=== PATIENT | male | born 1950 | race Caucasian/White ===

== ENCOUNTER 2017-01-23 21:43 | Emergency (ER) | payer MEDICARE, BC ==
--- NOTE | 2017-01-23 22:01 | EDM.PDOC ---
ED HISTORY OF PRESENT ILLNESS - General Chief Complaint: Cardiovascular Problem Stated Complaint: blood pressure, headache Time Seen by Provider: 01/23/17 21:44 Source of Information: Reports: Patient, Family, RN, RN notes reviewed History Limitations: Reports: No limitations - History of Present Illness INITIAL COMMENTS - FREE TEXT/NARRATIVE: Patient presents to the ED at [facility] requesting to have his blood pressure checked. Patient states he has been out of his BP pills for the past 3 days. Patient states he has been waiting for them to arrival in the mail. Patient states he started having a slight headache yesterday and has continued through today. No chest pain. No SOB. No focal neurological deficits. No DOBBINS. No cough. No edema. Symptom Onset Date: 01/20/17 - Related Data Home Meds: Home Meds Adalimumab [Humira Pen Crohn-Uc-Hs Starter] 40 mg IM ASDIRECTED 01/23/17 [ History] ED ROS GENERAL - Review of Systems Review Of Systems: See Below Constitutional: Denies: fever, chills, weakness Respiratory: Denies: Shortness of Breath, Cough Cardiovascular: Reports: Blood pressure problem. Denies: Chest pain, Palpitations GI/Abdominal: Denies: Abdominal pain, Nausea, Vomiting Skin: Reports: no symptoms Neurological: Reports: Headache. Denies: Dizziness, Numbness, Paresthesia, Tingling ED EXAM, GENERAL - Physical Exam Exam: See Below Exam Limited By: No limitations General Appearance: alert, no apparent distress Eye Exam: bilateral eye: EOMI, normal inspection, PERRL Respiratory/Chest: no respiratory distress, lungs clear, normal breath sounds Cardiovascular: normal peripheral pulses, regular rate, rhythm, no edema Peripheral Pulses: 2+: radial (L), radial (R) GI/Abdominal: normal bowel sounds, soft, non tender Neurological: alert, oriented, normal cognition Skin Exam: Warm, Dry, Intact, Normal color, No rash Course - Orders/Labs/Meds Orders: Active Orders 24 hr Category Date Time Status Telmisartan [Micardis] Med 01/23/17 22:05 Once 40 mg PO ONETIME ONE Meds: Medications Discontinued Medications Generic Name Dose Route Start Last Admin Trade Name Freq PRN Reason Stop Dose Admin Telmisartan 40 mg 01/23/17 22:05 Micardis PO 01/23/17 22:06 ONETIME ONE Departure - Departure Time of Disposition: 21:58 Disposition: Home, Self-Care 01 Condition: good Clinical Impression: Elevated blood pressure, situational Instructions: Hypertension Forms: ED Department Discharge Additional Instructions: 1. Stay well hydrated and rest 2. Continue your home medications the same 3. See your primary as symptoms warrant 4. We will give you a one time dose of your Blood Pressure pill today - Problem List Review Problem List Initiated/Reviewed/Updated: Yes - My Orders Last 24 Hours: My Active Orders 01/23/17 22:05 Telmisartan [Micardis] 40 mg PO ONETIME ONE - Assessment/Plan Last 24 Hours: My Active Orders 01/23/17 22:05 Telmisartan [Micardis] 40 mg PO ONETIME ONE
[2017-01-23 22:08] VITALS: BP 145/94
== END 2017-01-23 22:12 | disposition home or self-care (01) ==
LOC: VM.ED 21:43
DX: R03.0 Elevated blood-pressure reading, without diagnosis of hypertension (principal)
CPT/HCPCS: 99283; A9270

== ENCOUNTER 2017-03-14 08:26 | Day surgery (SDC) | payer MEDICARE, BC ==
[~2017-03-14 08:26] MED LIST: Lactated Ringers 1,000 ML IV SCH
[2017-03-14] MEDS ORDERED: Propofol 200 MG/20 ML SDV ONE ×2 (11:27→11:35)
[2017-03-14] MEDS ORDERED: fentaNYL 100 MCG/2 ML SDV ONE (11:27)
[2017-03-14 12:30] VITALS: BP 118/77
--- NOTE | 2017-03-15 09:12 | OR ---
PREOPERATIVE DIAGNOSIS: Screening colonoscopy. POSTOPERATIVE DIAGNOSIS: Screening colonoscopy. PROCEDURE PERFORMED: Colonoscopy with polypectomy at 60 cm. INDICATION: The patient is a 66-year-old male, whose last colonoscopy was 10 years ago and was normal, presents for a repeat colonoscopy at this time. NARRATIVE: This was done in the endoscopy suite. Sedation was given per Anesthesia. He was placed in the left lateral position. First, a rectal exam was done and was normal. Scope was introduced into the rectum and slowly advanced through the rectum, sigmoid, descending, transverse, and ascending colon until the cecum was reached. Upon reaching the cecum, the scope was slowly withdrawn looking all mucosal surfaces on the way out. At 60 cm, a large polyp was located with a nice stalk on it. I put the cautery loop grasper around it and cauterized across the base and then removed it. The remainder of the exam was normal with the exception of some scattered diverticula. FINAL DIAGNOSES: 1. Large polyp at 60 cm. 2. Scattered sigmoid diverticulosis. BKD: 03/14/2017 11:59:20 MODL: 03/14/2017 19:13:40 /[id number]
== END 2017-03-14 13:05 | disposition home or self-care (01) ==
LOC: VM.SDS 08:26
PROVIDERS: ATTEND Surgery
DX: Z12.11 Encounter for screening for malignant neoplasm of colon (principal); K63.5 Polyp of colon; K57.30 Diverticulosis of large intestine without perforation or abscess without bleeding; I10 Essential (primary) hypertension; Z98.890 Other specified postprocedural states; Z87.891 Personal history of nicotine dependence; Z79.82 Long term (current) use of aspirin; Z79.899 Other long term (current) drug therapy
CPT/HCPCS: 00810; 45380; J2704; J3010; J7120; 88305

== ENCOUNTER 2018-12-04 19:37 | Emergency (ER) | payer OTHER, MEDICARE, BC ==
[2018-12-04] MEDS: Sodium Chloride 0.9% 1,000 ML IV SCH ×2 (19:45→20:50)
[2018-12-04] MEDS ORDERED: Sodium Chloride 0.9% 10 ML Syringe FLUSH PRN (19:46)
[2018-12-04 20:29] LABS: CHLORIDE,CL 101 mmol/L (98-107); SODIUM,NA 136 mmol/L (136-145)
[2018-12-04 20:30] LABS: ANION GAP 18.1 mmol/L (10-20)
--- NOTE | 2018-12-04 21:01 | EDM.PDOC ---
ED HPI GENERAL MEDICAL PROBLEM - General Chief Complaint: Respiratory Problem Stated Complaint: SHORT OF BREATH Time Seen by Provider: 12/04/18 19:45 Source of Information: Reports: Patient, Family History Limitations: Reports: No Limitations - History of Present Illness INITIAL COMMENTS - FREE TEXT/NARRATIVE: Reports of cough, fever, chills since . He comes in this evening because during a coughing spell he nearly passed out. He denies headache, chest pain, abdominal pain, blood in urine or stool. He also denies fall or striking his head. Denies recent illness contact. He does appear quite pale on initial presentation Onset: Gradual Onset Date: 11/30/18 Duration: Intermittent Location: Reports: Chest Associated Symptoms: Reports: Cough, Syncope (near) - Related Data Allergies Allergy/AdvReac Type Severity Reaction Status Date / Time No Known Allergies Allergy Verified 12/04/18 21:26 Home Meds: Home Meds Adalimumab [Humira Pen Crohn-Uc-Hs Starter] 40 mg IM ASDIRECTED 01/23/17 [ History] Aspirin 81 mg PO DAILY 01/23/17 [History] Omeprazole Magnesium [Prilosec Otc] 20 mg PO DAILY 01/23/17 [History] Losartan Potassium [Cozaar] 1 tab PO DAILY 03/10/17 [History] Multivitamin with Minerals [Multiple Vitamin] 1 tab PO DAILY 03/10/17 [History] Tadalafil [Cialis] 20 mg PO DAILY PRN 03/10/17 [History] Tamsulosin HCl [Flomax] 1 tab PO DAILY 03/10/17 [History] Past Medical History HEENT History: Reports: Cataract, Hard of Hearing Cardiovascular History: Reports: Hypertension Respiratory History: Reports: SOB Gastrointestinal History: Reports: GERD Genitourinary History: Reports: Prostate Disorder Musculoskeletal History: Reports: Arthritis, Other (See Below) Other Musculoskeletal History: Ankylosing spondylitis Neurological History: Reports: None Psychiatric History: Reports: None Endocrine/Metabolic History: Reports: None Hematologic History: Reports: None Immunologic History: Reports: None Oncologic (Cancer) History: Reports: None Dermatologic History: Reports: None - Past Surgical History Head Surgeries/Procedures: Reports: None HEENT Surgical History: Reports: Cataract Surgery, Naso-Sinus Surgery, Tonsillectomy Cardiovascular Surgical History: Reports: None Respiratory Surgical History: Reports: None GI Surgical History: Reports: Colonoscopy Male Surgical History: Reports: None Endocrine Surgical History: Reports: None Neurological Surgical History: Reports: None Musculoskeletal Surgical History: Reports: None Oncologic Surgical History: Reports: None Dermatological Surgical History: Reports: Skin Biopsy ED ROS GENERAL - Review of Systems Review Of Systems: See Below Constitutional: Reports: Fever, Chills HEENT: Reports: No Symptoms Respiratory: Reports: Shortness of Breath, Cough Cardiovascular: Reports: No Symptoms Endocrine: Reports: No Symptoms GI/Abdominal: Reports: No Symptoms : Reports: No Symptoms Musculoskeletal: Reports: No Symptoms Skin: Reports: No Symptoms Neurological: Reports: Syncope Psychiatric: Reports: No Symptoms Hematologic/Lymphatic: Reports: No Symptoms Immunologic: Reports: No Symptoms ED EXAM, GENERAL - Physical Exam Exam: See Below Exam Limited By: No Limitations General Appearance: Alert, WD/WN, Mild Distress Eye Exam: Bilateral Eye: EOMI, Normal Inspection, PERRL Ears: Normal TMs Nose: Normal Inspection, Normal Mucosa, No Blood Throat/Mouth: Normal Inspection, Normal Lips, Normal Teeth, Normal Gums, Normal Oropharynx, Normal Voice, No Airway Compromise Head: Atraumatic, Normocephalic Neck: Normal Inspection, Supple, Non-Tender, Full Range of Motion Respiratory/Chest: No Respiratory Distress, No Accessory Muscle Use, Chest Non- Tender, Decreased Breath Sounds, Rales Cardiovascular: Normal Peripheral Pulses, Regular Rate, Rhythm, No Edema, No Gallop, No JVD, No Murmur, No Rub Peripheral Pulses: 2+: Posterior Tibial (L), Posterior Tibial (R), Dorsalis Pedis (L), Dorsalis Pedis (R) GI/Abdominal: Normal Bowel Sounds, Soft, Non-Tender, No Organomegaly, No Distention, No Abnormal Bruit, No Mass Back Exam: Normal Inspection, Full Range of Motion, NT Extremities: Normal Inspection, Normal Range of Motion, Non-Tender, Normal Capillary Refill, No Pedal Edema Neurological: Alert, Oriented, CN II-XII Intact, Normal Cognition, Normal Gait, Normal Reflexes, No Motor/Sensory Deficits Psychiatric: Normal Affect, Normal Mood Skin Exam: Warm, Dry, Intact, Normal Color, No Rash Lymphatic: No Adenopathy EKG INTERPRETATION EKG Date: 12/04/18 Time: 19:54 Rhythm: NSR Rate (Beats/Min): 68 [place]: Normal P-Wave: Present QRS: RBBB ST-T: Normal QT: Normal Comparison: NA - No Prior EKG Course - Orders/Labs/Meds Orders: Active Orders 24 hr Category Date Time Status EKG Documentation Completion [RC] STAT Care 12/04/18 19:46 Ordered C-REACTIVE PROTEIN [CHEM] Stat Lab 12/04/18 19:46 Ordered COMPREHENSIVE METABOLIC PN,CMP [CHEM] Stat Lab 12/04/18 19:46 Ordered CREATINE KINASE,CK [CHEM] Stat Lab 12/04/18 19:46 Ordered D Dimer [D-DIMER QUANTITATIVE] [COAG] Stat Lab 12/04/18 19:47 Ordered INFLUENZA A+B AG SCREEN [RM] Stat Lab 12/04/18 19:46 Ordered LACTIC ACID [CHEM] Stat Lab 12/04/18 19:46 Ordered PRO B-TYPE NATRIUR PEPT,BNPPRO [CHEM] Stat Lab 12/04/18 19:47 Ordered TROPONIN I [CHEM] Stat Lab 12/04/18 19:46 Ordered Sodium Chloride 0.9% [Normal Saline] 1,000 ml Med 12/04/18 20:00 Ordered IV ASDIRECTED Sodium Chloride 0.9% [Saline Flush] Med 12/04/18 19:46 Ordered 10 ml FLUSH ASDIRECTED PRN Saline Lock Insert [OM.PC] Routine Oth 12/04/18 19:46 Ordered Medication Orders Sodium Chloride (Normal Saline) 1,000 mls @ 999 mls/hr IV ASDIRECTED SUJATHA Sodium Chloride (Saline Flush) 10 ml FLUSH ASDIRECTED PRN PRN Reason: Keep Vein Open Labs: Laboratory Tests 12/04/18 Range/Units 19:45 WBC 8.6 (4.0-10.0) x10^3/uL RBC 4.88 (4.5-6.0) x10^6/uL Hgb 14.9 (14.0-18.0) g/dL Hct 43.8 (40.0-52.0) % MCV 89.8 (78.0-93.0) fL MCH 30.5 (26.0-32.0) pg MCHC 34.0 (32.0-36.0) g/dL RDW Coeff of Darren 12.9 (10.0-15.0) % Plt Count 248 (130-400) x10^3/uL Neut % (Auto) 51.7 (50.0-80.0) % Lymph % (Auto) 32.2 (25.0-50.0) % [place] % (Auto) 11.5 H (2.0-11.0) % Eos % (Auto) 3.3 (0.0-4.0) % Baso % (Auto) 1.3 H (0.2-1.2) % Meds: Medications Generic Name Dose Route Start Last Admin Trade Name Freq PRN Reason Stop Dose Admin Sodium Chloride 1,000 mls @ 999 mls/hr 12/04/18 20:00 Normal Saline IV ASDIRECTED SUJATHA Sodium Chloride 10 ml 12/04/18 19:46 Saline Flush FLUSH ASDIRECTED PRN Keep Vein Open - Radiology Interpretation Free Text/Narrative:: CT shows right upper lobe pneumonia, no aneurism. Departure - Departure Time of Disposition: 21:34 Disposition: Home, Self-Care 01 Condition: Good Clinical Impression: Right upper lobe pneumonia Instructions: Community-Acquired Pneumonia, Adult, [id number], Doxycycline tablets or capsules, Probiotics Referrals: Aliyah Perdomo MD [Primary Care Provider] - Forms: ED Department Discharge Additional Instructions: Plan 1. Stay well hydrated 2. Take the full course of antibiotic unless you develop signs of allergy including rash, throat or facial swelling, or difficulty breathing. Doxycycline 100 mg twice a day for 7 days. 3. Follow up with your primary doctor in 7-10 days for repeat x-ray to be sure pneumonia has resolved. 4. If symptoms worsen go to your primary doctor as well. 5. Please eat 1-2 servings of yogurt to prevent a bacterial infection of the gut due to the use of antibiotics 6. Please call if you have any additional questions or concerns - Problem List & Annotations (1) Right upper lobe pneumonia SNOMED Code(s): 658750480 Code(s): J18.1 - LOBAR PNEUMONIA, UNSPECIFIED ORGANISM Status: Acute Priority: Medium Current Visit: Yes Qualifiers: Pneumonia type: due to unspecified organism Qualified Code(s): J18.1 - Lobar pneumonia, unspecified organism - Problem List Review Problem List Initiated/Reviewed/Updated: Yes - My Orders Last 24 Hours: My Active Orders 12/04/18 19:46 EKG Documentation Completion [RC] STAT C-REACTIVE PROTEIN [CHEM] Stat COMPREHENSIVE METABOLIC PN,CMP [CHEM] Stat CREATINE KINASE,CK [CHEM] Stat INFLUENZA A+B AG SCREEN [RM] Stat LACTIC ACID [CHEM] Stat TROPONIN I [CHEM] Stat Sodium Chloride 0.9% [Saline Flush] 10 ml FLUSH ASDIRECTED PRN Saline Lock Insert [OM.PC] Routine 12/04/18 19:47 D Dimer [D-DIMER QUANTITATIVE] [COAG] Stat PRO B-TYPE NATRIUR PEPT,BNPPRO [CHEM] Stat 12/04/18 20:00 Sodium Chloride 0.9% [Normal Saline] 1,000 ml IV ASDIRECTED - Assessment/Plan Last 24 Hours: My Active Orders 12/04/18 19:46 EKG Documentation Completion [RC] STAT C-REACTIVE PROTEIN [CHEM] Stat COMPREHENSIVE METABOLIC PN,CMP [CHEM] Stat CREATINE KINASE,CK [CHEM] Stat INFLUENZA A+B AG SCREEN [RM] Stat LACTIC ACID [CHEM] Stat TROPONIN I [CHEM] Stat Sodium Chloride 0.9% [Saline Flush] 10 ml FLUSH ASDIRECTED PRN Saline Lock Insert [OM.PC] Routine 12/04/18 19:47 D Dimer [D-DIMER QUANTITATIVE] [COAG] Stat PRO B-TYPE NATRIUR PEPT,BNPPRO [CHEM] Stat 12/04/18 20:00 Sodium Chloride 0.9% [Normal Saline] 1,000 ml IV ASDIRECTED Assessment:: right upper lobe pneumonia Plan: Plan 1. Stay well hydrated 2. Take the full course of antibiotic unless you develop signs of allergy including rash, throat or facial swelling, or difficulty breathing. Doxycycline 100 mg twice a day for 7 days. 3. Follow up with your primary doctor in 7-10 days for repeat x-ray to be sure pneumonia has resolved. 4. If symptoms worsen go to your primary doctor as well. 5. Please eat 1-2 servings of yogurt to prevent a bacterial infection of the gut due to the use of antibiotics 6. Please call if you have any additional questions or concerns
[2018-12-04] MEDS: cefTRIAXone 2 GM Vial IVPUSH ONE (21:35)
[2018-12-04] MEDS: Codeine/Promethazine 10-6.25 MG/5 ML Syrup 5 ML UD Cup PO ONE (21:36)
[2018-12-04] MEDS: Iopamidol 612 MG/ML 100 ML Bottle IVPUSH ONE (21:38)
[2018-12-05 00:33] VITALS: BP 140/83
--- NOTE | 2018-12-05 08:49 | CT ---
[id number] CT/CT Chest W IV Exam: CT Chest W IV Clinical Data: SHORTNESS OF BREATH. POSSIBLE THORACIC AORTIC ANEURYSM. COMPARISON: NO PREVIOUS SIMILAR EXAM IS AVAILABLE. FINDINGS: There is substernal extension of thyroid tissue. The thoracic aorta is slightly ectatic but there is no aneurysm. The thoracic aorta measures a maximum diameter of 3.5 cm. There is mild nonspecific mediastinal adenopathy. There is minimal bilateral hilar adenopathy. No obvious pulmonary emboli are seen. There is a branching right upper lobe lymphangitic interstitial pattern which is not normal. There is question of an early right hilar mass. There is a minimal infiltrate at the right lung base posterior medially. There is a fatty appearance of the liver. There is no adrenal mass. An 8 mm nonspecific hypodensity is seen in segment IV A of the left lobe of the liver. IMPRESSION: QUESTION OF EARLY RIGHT HILAR MASS. BRANCHING LYMPHANGITIC RIGHT UPPER LOBE INTERSTITIAL PATTERN. CONSIDER BRONCHOSCOPY. NO THORACIC AORTIC ANEURYSM OR DISSECTION. Rich Quigley MD 12/05/18 0848 Thank you for allowing us to participate in the care of your patient.
== END 2018-12-04 21:50 | disposition home or self-care (01) ==
LOC: VM.ED 19:37
DX: J18.1 Lobar pneumonia, unspecified organism (principal); I10 Essential (primary) hypertension; Z79.82 Long term (current) use of aspirin; Z79.899 Other long term (current) drug therapy
CPT/HCPCS: 71260; 80053; 82550; 83605; 83880; 84484; 85025; 85379; 86140; 87804; 87804-59; 93005; 93010; 96361; 96374; 99284-25; 99284-GF; A9270-GY; J0696; J7030; Q9967

== ENCOUNTER 2020-09-16 05:11 | Emergency (ER) | payer OTHER, MEDICARE, BC ==
--- NOTE | 2020-09-16 05:49 | EDM.PDOC ---
<Fernando Granados W - Last Filed: 09/16/20 06:20> ED HPI GENERAL MEDICAL PROBLEM - General Chief Complaint: Abdominal Pain Stated Complaint: Abdominal pain, constipation Time Seen by Provider: 09/16/20 05:15 Source of Information: Reports: Patient History Limitations: Reports: No Limitations - History of Present Illness INITIAL COMMENTS - FREE TEXT/NARRATIVE: Pt. presents to ER with complaints of inability to urinate, constipation, and lower abdominal pain. Pt. has a history of ALS and does not ambulate freely on his own. He states that he has not had a BM since last Tuesday, and states that he was last able to urinate yesterday afternoon. Denies any fever or chills. No chest pain, shortness of breath. Denies any blood in stools. He states that he goes to the [facility] in [place] for his primary care. Pt. states that he has never required catheterization for urinary retention in the past. He does have a history of BPH and is on flomax. Pt. states that he has been passing gas. He states as though the stool is obstructing home at his distal colon/rectum. He states that he has been taking stool softeners but they are not helping. Onset Date: 09/15/20 Location: Reports: Abdomen Quality: Reports: Ache Severity: Severe - Related Data Allergies Allergy/AdvReac Type Severity Reaction Status Date / Time No Known Allergies Allergy Verified 09/16/20 05:53 Home Meds: Home Meds Adalimumab [Humira Pen Crohn-Uc-Hs Starter] 40 mg IM ASDIRECTED 01/23/17 [History] Aspirin 81 mg PO DAILY 01/23/17 [History] Omeprazole Magnesium [Prilosec Otc] 20 mg PO DAILY 01/23/17 [History] Losartan Potassium [Cozaar] 100 mg PO DAILY 03/10/17 [History] Multivitamin with Minerals [Multiple Vitamin] 1 tab PO DAILY 03/10/17 [History] Tadalafil [Cialis] 20 mg PO DAILY PRN 03/10/17 [History] Tamsulosin HCl [Flomax] 0.4 mg PO DAILY 03/10/17 [History] Cholecalciferol (Vitamin D3) [Vitamin D3] 2,000 units PO DAILY 12/05/18 [History] atorvaSTATin [Lipitor] 20 mg PO DAILY 12/05/18 [History] Past Medical History HEENT History: Reports: Cataract, Hard of Hearing Cardiovascular History: Reports: Hypertension Respiratory History: Reports: SOB Gastrointestinal History: Reports: GERD Genitourinary History: Reports: Prostate Disorder Musculoskeletal History: Reports: Arthritis, Other (See Below) Other Musculoskeletal History: Ankylosing spondylitis Neurological History: Reports: None Psychiatric History: Reports: None Endocrine/Metabolic History: Reports: None Hematologic History: Reports: None Immunologic History: Reports: None Oncologic (Cancer) History: Reports: None Dermatologic History: Reports: None - Past Surgical History Head Surgeries/Procedures: Reports: None HEENT Surgical History: Reports: Cataract Surgery, Naso-Sinus Surgery, Tonsillectomy Cardiovascular Surgical History: Reports: None Respiratory Surgical History: Reports: None GI Surgical History: Reports: Colonoscopy Male Surgical History: Reports: None Endocrine Surgical History: Reports: None Neurological Surgical History: Reports: None Musculoskeletal Surgical History: Reports: None Oncologic Surgical History: Reports: None Dermatological Surgical History: Reports: Skin Biopsy ED ROS GENERAL - Review of Systems Review Of Systems: See Below Constitutional: Reports: No Symptoms. Denies: Fever, Chills, Malaise, Weakness HEENT: Reports: No Symptoms Respiratory: Reports: No Symptoms Cardiovascular: Reports: No Symptoms Endocrine: Reports: No Symptoms GI/Abdominal: Reports: Abdominal Pain, Constipation. Denies: Black Stool, Bloody Stool, Hematochezia, Melena, Nausea, Vomiting : Reports: Urinary Retention. Denies: Dysuria, Frequency Musculoskeletal: Reports: No Symptoms Skin: Reports: No Symptoms Neurological: Reports: No Symptoms Psychiatric: Reports: No Symptoms Hematologic/Lymphatic: Reports: No Symptoms Immunologic: Reports: No Symptoms ED EXAM, GENERAL - Physical Exam Exam: See Below Exam Limited By: No Limitations General Appearance: Alert, WD/WN, No Apparent Distress GI/Abdominal: Soft, Non-Tender, No Distention, No Mass (Male) Exam: Normal Inspection, Other (bladder scan performed, approx 1300ml noted.) Rectal (Males) Exam: Fecal Impaction Back Exam: Normal Inspection, Full Range of Motion Extremities: Normal Inspection, Normal Range of Motion, No Pedal Edema, Normal Capillary Refill Neurological: Alert, Oriented, CN II-XII Intact, Normal Cognition, Other (Unable to ambulate, history of ALS.) Psychiatric: Normal Affect, Normal Mood Skin Exam: Warm, Dry, Intact, Normal Color Lymphatic: No Adenopathy Departure - Departure Disposition: Home, Self-Care 01 Clinical Impression: Acute urinary retention, ALS (amyotrophic lateral sclerosis) Constipation Qualifiers: Constipation type: unspecified constipation type Qualified Code(s): K59.00 - Constipation, unspecified - Discharge Information Instructions: Constipation, Adult, [id number], Acute Urinary Retention, Male, [id number] Referrals: Aliyah Perdomo MD [Primary Care Provider] - Forms: ED Department Discharge Additional Instructions: Increase your fluids orally at home as much as possible the next few weeks. Miralax, 1 capful in a large glass of water every day. Increase by 1 capful every 2 days until easy smooth bowel movements. i.e. day 2-2 capfuls, day 4-3 capfuls and then slowly decrease and titrate for easy smooth bowel movements. Return to the ED if new or worsening symptoms. Recheck with PCP next week. <Han Stone - Last Filed: 09/16/20 09:49> Course - Vital Signs Last Recorded V/S: Last Vital Signs Temp 97.3 F 09/16/20 05:11 Pulse 82 09/16/20 05:11 Resp 20 09/16/20 05:11 BP 148/92 H 09/16/20 05:11 Pulse Ox 96 09/16/20 05:11 - Orders/Labs/Meds Orders: Active Orders 24 hr Category Date Time Status Bladder Scan [RC] ASDIRECTED Care 09/16/20 06:15 Active Enema [RC] ASDIRECTED Care 09/16/20 08:50 Active Insert Aragon Catheter [Insert Urinary Catheter] [OM.PC] Care 09/16/20 05:30 Ordered Q24H Urinary Catheter Assessment [RC] ASDIRECTED Care 09/16/20 05:28 Active Sodium Chloride 0.9% [Saline Flush] Med 09/16/20 06:39 Active 10 ml FLUSH ASDIRECTED PRN Peripheral IV Insertion Adult [OM.PC] Routine Oth 09/16/20 06:39 Ordered Medication Orders Sodium Chloride (Saline Flush) 10 ml FLUSH ASDIRECTED PRN PRN Reason: Keep Vein Open Labs: Laboratory Tests 09/16/20 09/16/20 09/16/20 Range/Units 05:35 06:20 06:20 WBC 14.4 H (4.0-10.0) x10^3/uL RBC 4.44 L (4.5-6.0) x10^6/uL Hgb 13.1 L D (14.0-18.0) g/dL Hct 39.1 L (40.0-52.0) % MCV 88.1 (78.0-93.0) fL MCH 29.5 (26.0-32.0) pg MCHC 33.5 (32.0-36.0) g/dL RDW Coeff of Darren 13.3 (10.0-15.0) % Plt Count 332 D (130-400) x10^3/uL Add Manual Diff Yes Neutrophils % (Manual) 63 (50-80) % Band Neutrophils % 2 (0-6) % Lymphocytes % (Manual) 25 (25-50) % Monocytes % (Manual) 7 (2-11) % Eosinophils % (Manual) 3 (0-4) % Hypersegmented Neuts Moderate H Platelet Estimate Adequate PT 9.6 (9.5-12.3) SEC INR 0.9 L (2.0-3.5) Sodium (136-145) mmol/L Potassium (3.5-5.1) mmol/L Chloride (98-107) mmol/L Carbon Dioxide (21-32) mmol/L Anion Gap (10-20) mmol/L BUN (7-18) mg/dL Creatinine (0.70-1.30) mg/dL Est Cr Clr Drug Dosing mL/min Estimated GFR (MDRD) Glucose (74-106) mg/dL Calcium (8.5-10.1) mg/dL Corrected Calcium (8.5-10.1) mg/dL Total Bilirubin (0.2-1.0) mg/dL AST (15-37) U/L ALT (16-63) U/L Alkaline Phosphatase (46-116) U/L C-Reactive Protein (<=0.9) mg/dL Total Protein (6.4-8.2) g/dL Albumin (3.4-5.0) g/dL Globulin Albumin/Globulin Ratio Urine Color Yellow (YELLOW) Urine Appearance Clear (CLEAR) Urine pH 7.0 (5.0-8.0) Ur Specific [place] 1.020 Urine Protein Negative (NEGATIVE) mg/dL Urine Glucose (UA) Negative (NEGATIVE) mg/dL Urine Ketones Negative (NEGATIVE) mg/dL Urine Occult Blood Negative (NEGATIVE) Urine Nitrite Negative (NEGATIVE) Urine Bilirubin Negative (NEGATIVE) Urine Urobilinogen 0.2 (0.2) EU/dL Ur Leukocyte Esterase Negative (NEGATIVE) 09/16/20 Range/Units 06:20 WBC (4.0-10.0) x10^3/uL RBC (4.5-6.0) x10^6/uL Hgb (14.0-18.0) g/dL Hct (40.0-52.0) % MCV (78.0-93.0) fL MCH (26.0-32.0) pg MCHC (32.0-36.0) g/dL RDW Coeff of Darren (10.0-15.0) % Plt Count (130-400) x10^3/uL Add Manual Diff Neutrophils % (Manual) (50-80) % Band Neutrophils % (0-6) % Lymphocytes % (Manual) (25-50) % Monocytes % (Manual) (2-11) % Eosinophils % (Manual) (0-4) % Hypersegmented Neuts Platelet Estimate PT (9.5-12.3) SEC INR (2.0-3.5) Sodium 134 L (136-145) mmol/L Potassium 4.0 (3.5-5.1) mmol/L Chloride 102 (98-107) mmol/L Carbon Dioxide 23 (21-32) mmol/L Anion Gap 13.0 (10-20) mmol/L BUN 14 (7-18) mg/dL Creatinine 0.6 L (0.70-1.30) mg/dL Est Cr Clr Drug Dosing 125.74 mL/min Estimated GFR (MDRD) > 60 Glucose 106 (74-106) mg/dL Calcium 8.7 (8.5-10.1) mg/dL Corrected Calcium 9.58 (8.5-10.1) mg/dL Total Bilirubin 0.5 (0.2-1.0) mg/dL AST 11 L (15-37) U/L ALT 23 (16-63) U/L Alkaline Phosphatase 35 L (46-116) U/L C-Reactive Protein 4.5 H (<=0.9) mg/dL Total Protein 7.0 (6.4-8.2) g/dL Albumin 2.9 L (3.4-5.0) g/dL Globulin 4.1 Albumin/Globulin Ratio 0.71 Urine Color (YELLOW) Urine Appearance (CLEAR) Urine pH (5.0-8.0) Ur Specific [place] Urine Protein (NEGATIVE) mg/dL Urine Glucose (UA) (NEGATIVE) mg/dL Urine Ketones (NEGATIVE) mg/dL Urine Occult Blood (NEGATIVE) Urine Nitrite (NEGATIVE) Urine Bilirubin (NEGATIVE) Urine Urobilinogen (0.2) EU/dL Ur Leukocyte Esterase (NEGATIVE) Meds: Medications Generic Name Dose Route Start Last Admin Trade Name Freq PRN Reason Stop Dose Admin Sodium Chloride 10 ml 09/16/20 06:39 Saline Flush FLUSH ASDIRECTED PRN Keep Vein Open Discontinued Medications Generic Name Dose Route Start Last Admin Trade Name Freq PRN Reason Stop Dose Admin Iopamidol 100 ml 09/16/20 07:15 09/16/20 07:45 Isovue-300 (61%) IVPUSH 09/16/20 07:16 100 ml ONETIME ONE Administration Polyethylene Glycol 34 gm 09/16/20 08:22 09/16/20 08:50 Miralax PO 09/16/20 08:23 34 gm ONETIME ONE Administration - Radiology Interpretation Free Text/Narrative:: 2 view of the abdomen x-ray per radiology shows obstipation with large amount of inspissated stool within the rectal vault CT abdomen pelvis per radiology shows no acute process no bowel obstruction. - Re-Assessments/Exams Free Text/Narrative Re-Assessment/Exam: 09/16/20 07:12 Assumed care of this patient at shift change. Waiting for the CT scan to be completed that was ordered by Fernando Du PA-C. Pt resting comfortably with no pain at this time following the aragon catheter was placed. 09/16/20 08:30 A double dose of MiraLAX was ordered for 34 g total. Fleets enema to be instilled for the obstipation. I reviewed the negative CT results for any acute process with the patient. 09/16/20 09:02 I had a long discussion with the patient about his urinary retention as well. This is most likely caused to his constipation he feels. He has not had any problems with voiding in the past. He would like the catheter removed at this time. Catheter was removed. He was able to have a rather large bowel movement while in the emergency department. We will discharge him home with his . And put on Miralax for treatment of his constipation. He was comfortable with this plan and his questions answered. Departure - Departure Time of Disposition: 09:07 Sepsis Event Note (ED) - Focused Exam Vital Signs: Vital Signs Temp Pulse Resp BP Pulse Ox 09/16/20 05:11 97.3 F 82 20 148/92 H 96 - My Orders Last 24 Hours: My Active Orders 09/16/20 08:50 Enema [RC] ASDIRECTED - Assessment/Plan Last 24 Hours: My Active Orders 09/16/20 08:50 Enema [RC] ASDIRECTED
[2020-09-16 05:53] VITALS: BP 148/92; PULSE 82
[2020-09-16] MEDS ORDERED: Sodium Chloride 0.9% 10 ML Syringe FLUSH PRN (06:39)
[2020-09-16 06:46] LABS: CHLORIDE,CL 102 mmol/L (98-107); SODIUM,NA 134 mmol/L (136-145)
[2020-09-16] MEDS ORDERED: Iopamidol 612 MG/ML 100 ML Bottle IVPUSH ONE (07:15)
--- NOTE | 2020-09-16 07:44 | CR ---
[id number] RAD/RAD Abd Flat and Upright 2V Exam: RAD Abd Flat and Upright 2V Clinical Data: ABDOMINAL PAIN COMPARISON: NO PREVIOUS SIMILAR EXAM IS AVAILABLE FINDINGS: There is a large fecal volume There is no bowel distention There is no free air There is no organomegaly or pathologic calcification IMPRESSION: OBSTIPATION Rich Quigley MD 09/16/20 0743 Thank you for allowing us to participate in the care of your patient.
--- NOTE | 2020-09-16 08:08 | CT ---
[id number] CT/CT Abdomen Pelvis W IV EXAM: CT Abdomen Pelvis W IV CLINICAL DATA: ABDOMINAL PAIN ELEVATED WHITE BLOOD CELL COUNT COMPARISON: NO PREVIOUS SIMILAR EXAM IS AVAILABLE FINDINGS: A tiny nodule is seen at the right lung base on image 4, series 2 There is a Ovalles catheter in the bladder The bladder wall is thickened The pelvis shows no mass or adenopathy The appendix is normal The liver and spleen, kidneys and adrenals, pancreas and aorta are also unremarkable The gallbladder is not distended There is no bowel obstruction IMPRESSION: NO ACUTE PROCESS. Rich Quigley MD 09/16/20 0806 Thank you for allowing us to participate in the care of your patient.
[2020-09-16] MEDS ORDERED: Polyethylene Glycol 3350 Powder 17 GM Packet PO ONE (08:22)
== END 2020-09-16 09:53 | disposition home or self-care (01) ==
LOC: VM.ED 05:11
DX: K59.00 Constipation, unspecified (principal); R33.9 Retention of urine, unspecified; G12.21 Amyotrophic lateral sclerosis; I10 Essential (primary) hypertension; K21.9 Gastro-esophageal reflux disease without esophagitis; N42.9 Disorder of prostate, unspecified; Z79.82 Long term (current) use of aspirin; Z79.899 Other long term (current) drug therapy
CPT/HCPCS: 36415; 51702; 74019; 74177; 80053; 81003; 85025; 85610; 86140; 99284; 99284-25; A9270-GY; Q9967

== ENCOUNTER 2020-10-19 11:54 | Emergency (ER) | payer OTHER, MEDICARE, BC ==
--- NOTE | 2020-10-19 12:30 | EDM.PDOC ---
ED HPI GENERAL MEDICAL PROBLEM - General Chief Complaint: Respiratory Problem Stated Complaint: shortness of breath Time Seen by Provider: 10/19/20 11:54 Source of Information: Reports: Patient, EMS, Family History Limitations: Reports: No Limitations - History of Present Illness INITIAL COMMENTS - FREE TEXT/NARRATIVE: Mendoza is a 70 year old male presents to ER with complaints of increased shortness of breath and anxiety. Was diagnosed with ALS in July. States "looking back at what was happening, feel likely has had it for 3 years". Seems to be progressing quickly despite taking IV Radicava infusions to try to stabilize the disease. Has noticed over the last 3 days, weakness seems to be much worse. Has not been able to feed himself the last 2 days as raising his arm and the weakness has become more pronounced. Admits that is very difficult to roll over in bed. Unable to walk. Family does help in his care, use an ez- stand for transfers, give him IV infusions daily. Does do a nebulizer treatment every evening to help with his phlegm and that does seem to help. This am, had his infusion before breakfast and approximately 40 minutes later, felt like he couldn't get his breath, couldn't swallow his food and got very anxious. states were unable to calm him or slow his breathing. [facility] Home health does come in weekly for nursing, PT and OT. Adjustments have been made in the home to make it more handicap accessible. On EMS arrival, oxygen sat was 99% on room air. Did start oxygen at 2 liters and patient admits that helped him to feel better. Denies shortness of breath or chest pain now. No pain in his joints. Does have a history of RA, will be resuming his Humara injections as well as is on prednisone. Onset: Today, Sudden Duration: Minutes:, Improving Location: Reports: Chest Severity: Moderate Associated Symptoms: Reports: cough w sputum, Shortness of Breath, Weakness. Denies: Confusion, Chest Pain, Diaphoresis, Fever/Chills, Headaches, Loss of Appetite, Nausea/Vomiting - Related Data Allergies Allergy/AdvReac Type Severity Reaction Status Date / Time No Known Allergies Allergy Verified 10/19/20 12:43 Home Meds: Home Meds Adalimumab [Humira Pen Crohn-Uc-Hs Starter] 40 mg IM ASDIRECTED 01/23/17 [History] Aspirin 81 mg PO DAILY 01/23/17 [History] Omeprazole Magnesium [Prilosec Otc] 20 mg PO DAILY 01/23/17 [History] Losartan Potassium [Cozaar] 100 mg PO DAILY 03/10/17 [History] Tamsulosin HCl [Flomax] 0.4 mg PO DAILY 03/10/17 [History] Cholecalciferol (Vitamin D3) [Vitamin D3] 1,000 units PO DAILY 10/19/20 [His tory] Edaravone [Radicava] 60 mg IV ASDIRECTED 10/19/20 [History] Riluzole 50 mg PO BID 10/19/20 [History] polyethylene glycoL 3350 [Miralax] 1 cap PO DAILY 10/19/20 [History] predniSONE [Prednisone] 10 mg PO DAILY 10/19/20 [History] Past Medical History HEENT History: Reports: Cataract, Hard of Hearing Cardiovascular History: Reports: Hypertension Respiratory History: Reports: SOB Gastrointestinal History: Reports: GERD Genitourinary History: Reports: Prostate Disorder Musculoskeletal History: Reports: Arthritis, Other (See Below) Other Musculoskeletal History: Ankylosing spondylitis Neurological History: Reports: None, Other (See Below) Other Neuro History: ALS Psychiatric History: Reports: None Endocrine/Metabolic History: Reports: None Hematologic History: Reports: None Immunologic History: Reports: None Oncologic (Cancer) History: Reports: None Dermatologic History: Reports: None - Past Surgical History Head Surgeries/Procedures: Reports: None HEENT Surgical History: Reports: Cataract Surgery, Naso-Sinus Surgery, Tonsillectomy Cardiovascular Surgical History: Reports: None Respiratory Surgical History: Reports: None GI Surgical History: Reports: Colonoscopy Male Surgical History: Reports: None Endocrine Surgical History: Reports: None Neurological Surgical History: Reports: None Musculoskeletal Surgical History: Reports: None Oncologic Surgical History: Reports: None Dermatological Surgical History: Reports: Skin Biopsy Social & Family History - Tobacco Use Tobacco Use Status *Q: Current Every Day Tobacco User Tobacco Use Within Last Twelve Months: Snuff/Dip ED ROS GENERAL - Review of Systems Review Of Systems: See Below Constitutional: Reports: Malaise, Weakness, Fatigue. Denies: Fever, Chills, Dec reased Appetite HEENT: Reports: Rhinitis, Sinus Problem. Denies: Ear Pain, Throat Pain Respiratory: Reports: Shortness of Breath, Cough, Sputum Cardiovascular: Reports: Lightheadedness. Denies: Chest Pain, Edema Endocrine: Reports: Fatigue GI/Abdominal: Reports: Constipation. Denies: Abdominal Pain, Diarrhea, Nausea, Vomiting : Reports: No Symptoms Musculoskeletal: Reports: Muscle Stiffness, Other (joint stiffness) Skin: Reports: No Symptoms Neurological: Reports: Weakness ED EXAM, GENERAL - Physical Exam Exam: See Below Exam Limited By: No Limitations General Appearance: Alert, WD/WN, No Apparent Distress Eye Exam: Bilateral Eye: PERRL Ears: Normal External Exam, Normal TMs Nose: Normal Inspection, Normal Mucosa, No Blood Throat/Mouth: Normal Inspection, Normal Oropharynx Neck: Normal Inspection, Supple, Non-Tender Respiratory/Chest: No Respiratory Distress, Lungs Clear, Normal Breath Sounds Cardiovascular: Regular Rate, Rhythm GI/Abdominal: Normal Bowel Sounds, Soft, Non-Tender Extremities: Limited Range of Motion, Other (weakness noted throughout) Neurological: Alert, Oriented Skin Exam: Warm, Dry Course - Vital Signs Last Recorded V/S: Last Vital Signs Temp 98 F 10/19/20 11:55 Pulse 70 10/19/20 11:55 Resp 24 H 10/19/20 11:55 BP 161/97 H 10/19/20 12:15 Pulse Ox 99 10/19/20 11:55 - Orders/Labs/Meds Labs: Laboratory Tests 10/19/20 10/19/20 10/19/20 Range/Units 12:32 12:32 12:32 WBC 11.8 H (4.0-10.0) x10^3/uL RBC 4.44 L (4.5-6.0) x10^6/uL Hgb 13.0 L (14.0-18.0) g/dL Hct 39.3 L (40.0-52.0) % MCV 88.5 (78.0-93.0) fL MCH 29.3 (26.0-32.0) pg MCHC 33.1 (32.0-36.0) g/dL RDW Coeff of Darren 13.2 (10.0-15.0) % Plt Count 380 (130-400) x10^3/uL Neut % (Auto) 62.9 (50.0-80.0) % Lymph % (Auto) 28.1 (25.0-50.0) % [place] % (Auto) 7.2 (2.0-11.0) % Eos % (Auto) 1.2 (0.0-4.0) % Baso % (Auto) 0.6 (0.2-1.2) % D-Dimer, Quantitative 1.67 H (<=0.58) mg/LFEU Sodium 138 (136-145) mmol/L Potassium 3.7 (3.5-5.1) mmol/L Chloride 101 (98-107) mmol/L Carbon Dioxide 27 (21-32) mmol/L Anion Gap 13.7 (5-15) mmol/L BUN 11 (7-18) mg/dL Creatinine 0.5 L (0.70-1.30) mg/dL Est Cr Clr Drug Dosing TNP Estimated GFR (MDRD) > 60 Glucose 98 (74-106) mg/dL Calcium 9.5 (8.5-10.1) mg/dL Corrected Calcium 10.30 H (8.5-10.1) mg/dL Total Bilirubin 0.7 (0.2-1.0) mg/dL AST 17 (15-37) U/L ALT 31 (16-63) U/L Alkaline Phosphatase 40 L (46-116) U/L Troponin I < 0.017 (<=0.056) ng/mL C-Reactive Protein 1.8 H (<=0.9) mg/dL Total Protein 7.2 (6.4-8.2) g/dL Albumin 3.0 L (3.4-5.0) g/dL Globulin 4.2 Albumin/Globulin Ratio 0.71 Meds: Medications Discontinued Medications Generic Name Dose Route Start Last Admin Trade Name Freq PRN Reason Stop Dose Admin Iopamidol 100 ml 10/19/20 13:43 10/19/20 13:53 Isovue-300 (61%) IVPUSH 10/19/20 13:44 100 ml ONETIME ONE Administration - Re-Assessments/Exams Free Text/Narrative Re-Assessment/Exam: 10/19/20 13:00 Oxygen stopped 30 minutes, sats remain 95%. Labs noted, d-dimer is elevated. Will proceed with CT to rule out PE. 10/19/20 14:27 CT negative for PE. Discussed ability to return home today. Sats have remained 95% on room air. Does feel comfortable if we are able to arrange transport as he transfer in and out of a car. Does request med for anxiety. Will discharge home on Xanax and encouraged to start the Cymbalta tomorrow as planned. in agreement with this plan. 10/19/20 14:45 Transport arranged with EMS Departure - Departure Time of Disposition: 14:30 Disposition: Home, Self-Care 01 Condition: Fair Clinical Impression: ALS (amyotrophic lateral sclerosis), Anxiety - Discharge Information *PRESCRIPTION DRUG MONITORING PROGRAM REVIEWED*: No *COPY OF PRESCRIPTION DRUG MONITORING REPORT IN PATIENT [place]: No Instructions: Managing Anxiety, Adult Referrals: PCP,Not In Area [Primary Care Provider] - Forms: ED Department Discharge Additional Instructions: 1. Rest 2. Push fluids as able 3. Xanax 0.25 mg every 6 hours as needed for anxiety 4. Start Cymbalta tomorrow as planned 5. Call or return with any questions or concerns Sepsis Event Note (ED) - Focused Exam Vital Signs: Vital Signs Temp Pulse Resp BP Pulse Ox 10/19/20 12:15 161/97 H 10/19/20 11:55 98 F 70 24 H 157/107 H 99
[2020-10-19 12:55] LABS: CHLORIDE,CL 101 mmol/L (98-107); SODIUM,NA 138 mmol/L (136-145)
[2020-10-19 12:56] LABS: ANION GAP 13.7 mmol/L (5-15)
[2020-10-19 13:04] VITALS: PULSE 70
--- NOTE | 2020-10-19 13:15 | CR ---
[id number] RAD/RAD Chest PA or AP 1V EXAM: SINGLE VIEW CHEST. INDICATION: SHORTNESS OF BREATH COMPARISON: CORRELATION IS MADE WITH THE CAT SCAN OF DECEMBER 04, 2018 FINDINGS: The lungs are clear A chest port is seen The cardiomediastinal contour is normal There is no pneumothorax The lung bases are not entirely imaged IMPRESSION: NO ACUTE PROCESS Rich Quigley MD 10/19/20 [id number] Thank you for allowing us to participate in the care of your patient.
[2020-10-19] MEDS ORDERED: Iopamidol 612 MG/ML 100 ML Bottle IVPUSH ONE (13:43)
[2020-10-19 14:09] VITALS: BP 161/97
--- NOTE | 2020-10-19 14:20 | CT ---
[id number] CT/CTA Chest Exam: CTA Chest Clinical Data: SHORTNESS OF BREATH ELEVATED D-DIMER COMPARISON: CORRELATION IS MADE WITH DECEMBER 04, 2018 FINDINGS: There are no pulmonary emboli There is no pulmonary parenchymal infiltrate There is no pleural effusion There is no mediastinal mass or adenopathy The great vessels are intact There is no adrenal mass IMPRESSION: NO PULMONARY EMBOLI Rich Quigley MD 10/19/20 [id number] Thank you for allowing us to participate in the care of your patient.
[2020-10-19] MEDS ORDERED: ALPRAZolam 0.25 MG Tab PO PRN (14:46)
[2020-10-19] MEDS ORDERED: ALPRAZolam 0.25 MG Tab PO ONE (14:53)
== END 2020-10-19 15:05 | disposition home or self-care (01) ==
LOC: VM.ED 11:54
DX: G12.21 Amyotrophic lateral sclerosis (principal); F41.9 Anxiety disorder, unspecified; I10 Essential (primary) hypertension; K21.9 Gastro-esophageal reflux disease without esophagitis; M19.90 Unspecified osteoarthritis, unspecified site; Z72.0 Tobacco use; Z79.82 Long term (current) use of aspirin; Z79.899 Other long term (current) drug therapy
CPT/HCPCS: 36415; 71045; 71275; 80053; 84484; 85025; 85379; 86140; 99284; 99285-25; A9270-GY; Q9967

== ENCOUNTER 2021-01-03 12:54 | Emergency (ER) | payer MEDICARE, BC ==
--- NOTE | 2021-01-03 13:07 | EDM.PDOC ---
ED HPI GENERAL MEDICAL PROBLEM - General Chief Complaint: General Stated Complaint: ER Time Seen by Provider: 01/03/21 12:54 Source of Information: Reports: Patient - History of Present Illness INITIAL COMMENTS - FREE TEXT/NARRATIVE: The emergency department complaint of abdominal pain. Patient states that he was recently started on a new medication and has noticed that he has not had a bowel movement 2 days. He states that he has a significant amount of pain and discomfort in his lower abdomen. He also is on large quantities of morphine and lorazepam for a diagnosis of ALS. Patient states that it is being managed from home for the most part.Patient denies any recent fevers bowel obstructions or surgical interventions. Onset: Gradual Quality: Reports: Other Severity: Mild Improves with: Reports: None Worsens with: Reports: None Context: Reports: Other Associated Symptoms: Reports: No Other Symptoms - Related Data Allergies Allergy/AdvReac Type Severity Reaction Status Date / Time No Known Allergies Allergy Verified 10/19/20 12:43 Home Meds: Home Meds Adalimumab [Humira Pen Crohn-Uc-Hs Starter] 40 mg IM ASDIRECTED 01/23/17 [History] Aspirin 81 mg PO DAILY 01/23/17 [History] Omeprazole Magnesium [Prilosec Otc] 20 mg PO DAILY 01/23/17 [History] Losartan Potassium [Cozaar] 100 mg PO DAILY 03/10/17 [History] Tamsulosin HCl [Flomax] 0.4 mg PO DAILY 03/10/17 [History] Cholecalciferol (Vitamin D3) [Vitamin D3] 1,000 units PO DAILY 10/19/20 [History] Edaravone [Radicava] 60 mg IV ASDIRECTED 10/19/20 [History] Riluzole 50 mg PO BID 10/19/20 [History] polyethylene glycoL 3350 [Miralax] 1 cap PO DAILY 10/19/20 [History] predniSONE [Prednisone] 10 mg PO DAILY 10/19/20 [History] Past Medical History HEENT History: Reports: Cataract, Hard of Hearing Cardiovascular History: Reports: Hypertension Respiratory History: Reports: SOB Gastrointestinal History: Reports: GERD Genitourinary History: Reports: Prostate Disorder Musculoskeletal History: Reports: Arthritis, Other (See Below) Other Musculoskeletal History: Ankylosing spondylitis Neurological History: Reports: None, Other (See Below) Other Neuro History: ALS Psychiatric History: Reports: None Endocrine/Metabolic History: Reports: None Hematologic History: Reports: None Immunologic History: Reports: None Oncologic (Cancer) History: Reports: None Dermatologic History: Reports: None - Past Surgical History Head Surgeries/Procedures: Reports: None HEENT Surgical History: Reports: Cataract Surgery, Naso-Sinus Surgery, Tonsillectomy Cardiovascular Surgical History: Reports: None Respiratory Surgical History: Reports: None GI Surgical History: Reports: Colonoscopy Male Surgical History: Reports: None Endocrine Surgical History: Reports: None Neurological Surgical History: Reports: None Musculoskeletal Surgical History: Reports: None Oncologic Surgical History: Reports: None Dermatological Surgical History: Reports: Skin Biopsy ED ROS GENERAL - Review of Systems Review Of Systems: Comprehensive ROS is negative, except as noted in HPI. Constitutional: Reports: No Symptoms HEENT: Reports: No Symptoms Respiratory: Reports: No Symptoms Cardiovascular: Reports: No Symptoms Endocrine: Reports: No Symptoms GI/Abdominal: Reports: Abdominal Pain, Constipation, Decreased Appetite, Distension. Denies: Nausea, Stool Incontinence, Vomiting : Reports: No Symptoms Musculoskeletal: Reports: No Symptoms Skin: Reports: No Symptoms Neurological: Reports: No Symptoms Psychiatric: Reports: No Symptoms Hematologic/Lymphatic: Reports: No Symptoms Immunologic: Reports: No Symptoms ED EXAM, GENERAL - Physical Exam Exam: See Below Exam Limited By: No Limitations General Appearance: Alert, WD/WN, No Apparent Distress Eye Exam: Bilateral Eye: EOMI, PERRL Nose: Normal Inspection, Normal Mucosa Throat/Mouth: Normal Inspection, Normal Lips, Normal Teeth Head: Atraumatic, Normocephalic Neck: Normal Inspection, Supple, Non-Tender, Full Range of Motion Respiratory/Chest: No Respiratory Distress, Lungs Clear, Normal Breath Sounds, No Accessory Muscle Use, Chest Non-Tender Cardiovascular: Normal Peripheral Pulses, Regular Rate, Rhythm Back Exam: Normal Inspection, Full Range of Motion Extremities: Normal Inspection, Normal Range of Motion, Non-Tender, Normal Capillary Refill Neurological: Alert, Oriented, Normal Cognition Psychiatric: Normal Affect, Normal Mood Skin Exam: Warm, Dry, Intact, Normal Color Course - Orders/Labs/Meds Orders: Active Orders 24 hr Category Date Time Status Heparin Sodium [Heparin Lock Flush 100 Units/ML] Med 01/03/21 14:07 Active 500 units IVPUSH ASDIRECTED PRN Medication Orders Heparin Sodium (Porcine) (Heparin Sodium 100 Units/Ml 5 Ml Syringe) 500 units IVPUSH ASDIRECTED PRN PRN Reason: Keep Vein Open Last Admin: 01/03/21 14:12 Dose: 500 units Documented by: ERIC Labs: Laboratory Tests 01/03/21 01/03/21 Range/Units 13:15 13:15 WBC 17.0 H (4.0-10.0) x10^3/uL RBC 5.10 (4.5-6.0) x10^6/uL Hgb 14.8 D (14.0-18.0) g/dL Hct 44.2 (40.0-52.0) % MCV 86.7 (78.0-93.0) fL MCH 29.0 (26.0-32.0) pg MCHC 33.5 (32.0-36.0) g/dL RDW Coeff of Darren 13.7 (10.0-15.0) % Plt Count 297 D (130-400) x10^3/uL Neut % (Auto) 82.6 H (50.0-80.0) % Lymph % (Auto) 6.8 L (25.0-50.0) % Page % (Auto) 10.1 (2.0-11.0) % Eos % (Auto) 0.3 (0.0-4.0) % Baso % (Auto) 0.2 (0.2-1.2) % Sodium 131 L (136-145) mmol/L Potassium 3.6 (3.5-5.1) mmol/L Chloride 93 L (98-107) mmol/L Carbon Dioxide 31 (21-32) mmol/L Anion Gap 10.6 (5-15) mmol/L BUN 9 (7-18) mg/dL Creatinine 0.4 L (0.70-1.30) mg/dL Est Cr Clr Drug Dosing TNP Estimated GFR (MDRD) > 60 Glucose 113 H (70-99) mg/dL Calcium 9.1 (8.5-10.1) mg/dL Corrected Calcium 9.90 (8.5-10.1) mg/dL Total Bilirubin 1.0 (0.2-1.0) mg/dL AST 20 (15-37) U/L ALT 39 (16-63) U/L Alkaline Phosphatase 42 L (46-116) U/L Total Protein 6.4 (6.4-8.2) g/dL Albumin 3.0 L (3.4-5.0) g/dL Globulin 3.4 Albumin/Globulin Ratio 0.88 Meds: Medications Generic Name Dose Route Start Last Admin Trade Name Alexa PRN Reason Stop Dose Admin Heparin Sodium (Porcine) 500 units 01/03/21 14:07 01/03/21 14:12 Heparin Sodium 100 Units/Ml 5 Ml Syringe IVPUSH 500 units ASDIRECTED PRN Administration Keep Vein Open Discontinued Medications Generic Name Dose Route Start Last Admin Trade Name Alexa PRN Reason Stop Dose Admin Fentanyl 50 mcg 01/03/21 13:43 01/03/21 14:03 Fentanyl 50 Mcg/Ml Sdv IVPUSH 01/03/21 13:44 50 mcg ONETIME ONE Administration Lorazepam 2 mg 01/03/21 14:06 01/03/21 14:11 Lorazepam 2 Mg/Ml Sdv IVPUSH 01/03/21 14:07 2 mg STAT ONE Administration Departure - Departure Time of Disposition: 02:00 Disposition: DC/Tfer to Hospice - Home 50 Condition: Poor Clinical Impression: Hospice care patient Bowel obstruction Qualifiers: Intestinal obstruction type: unspecified Intestinal obstruction extent: complete Qualified Code(s): K56.601 - Complete intestinal obstruction, unspecified as to cause - Discharge Information *PRESCRIPTION DRUG MONITORING PROGRAM REVIEWED*: Not Applicable *COPY OF PRESCRIPTION DRUG MONITORING REPORT IN PATIENT [place]: Not Applicable Instructions: Palliative Care, Bowel Obstruction Forms: ED Department Discharge Additional Instructions: 1. rest 2. Hospice plan being developed and family agree to plan of care 3. Continue all at home medications 4. Activity/movement and diet as tolerated 5. Can take over the counter Tylenol for any pain or discomfort 6. Follow up with PCP if symptoms continue, return, or progress 7. Call with any questions or concerns - My Orders Last 24 Hours: My Active Orders 01/03/21 14:07 Heparin Sodium [Heparin Lock Flush 100 Units/ML] 500 units IVPUSH ASDIRECTED PRN - Assessment/Plan Last 24 Hours: My Active Orders 01/03/21 14:07 Heparin Sodium [Heparin Lock Flush 100 Units/ML] 500 units IVPUSH ASDIRECTED PRN Assessment:: 1. abdominal pain 2. bowel obstruction Plan: 1. Labs completed in the ER. Results reviewed with the patient 2. CT scan completed in the ER. Results reviewed with the patient 3. IV initiated in the emergency department 4. IV fluids provided 5. Pain medication given for severe pain and discomfort-Fentanyl 6. Zofran given in the ER to help with nausea 7. Consultation completed with-hospice/home health for patient is on 8. Patient does not wanter surgical or treatment other than pain control 9. Home/health hospice present and will help and educate increase of pain medications at home 10. Patient will be transferred to a higher level of care needing further medical and/or surgical interventions 11. Patient and nursing staff was updated regarding the plan of care 12. Patient and family are agreeable to the above plan of care 13. All questions and concerns were addressed with the patient and family prior to discharge
[2021-01-03] MEDS ORDERED: fentaNYL 50 MCG/ML SDV IVPUSH ONE (13:43)
[2021-01-03 14:02] LABS: ANION GAP 10.6 mmol/L (5-15); CHLORIDE,CL 93 mmol/L (98-107); SODIUM,NA 131 mmol/L (136-145)
[2021-01-03] MEDS ORDERED: LORazepam 2 MG/ML SDV IVPUSH ONE (14:06)
--- NOTE | 2021-01-03 14:12 | CT ---
[id number] CT/CT Abdomen Pelvis WO IV EXAM: CT Abdomen Pelvis WO IV CLINICAL DATA: ABDOMINAL PAIN. COMPARISON STUDY: None. FINDINGS: Dependent atelectasis at the lung bases bilaterally. The liver, gallbladder, spleen, pancreas, adrenal glands and kidneys are unremarkable. There are numerous gas and fluid distended loops of large and small bowel extending to the rectum. Trace free fluid adjacent to the most dilated portion of the bowel in the region of the cecum. The cecum measures up to 10.6 cm. No lymphadenopathy, free fluid, or pneumoperitoneum. Ovalles catheter in place. Scattered changes of spondylosis the spine. No fracture or osseous lesion. IMPRESSION: Numerous gas and fluid distended loops of large and small bowel extending to the rectum. Findings are concerning for distal obstruction. No free air. There is a small amount of free fluid adjacent to the cecum which is distended up to 10.6 cm Weston Hamlin DO 01/03/21 [id number] Thank you for allowing us to participate in the care of your patient.
[2021-01-03 16:32] VITALS: BP 145/92; PULSE 100
== END 2021-01-03 14:20 | disposition hospice, home (50) ==
LOC: VM.ED 12:54
DX: K56.601 Complete intestinal obstruction, unspecified as to cause (principal); I10 Essential (primary) hypertension; K21.9 Gastro-esophageal reflux disease without esophagitis; M19.90 Unspecified osteoarthritis, unspecified site; N42.9 Disorder of prostate, unspecified; Z79.82 Long term (current) use of aspirin; Z79.899 Other long term (current) drug therapy; Z51.5 Encounter for palliative care
CPT/HCPCS: 74176; 80053; 85025; 96374; 96375; 99284; 99285-25; J1642; J2060; J3010